=== PATIENT | male | born 1985 | race African-American/Black ===

== ENCOUNTER 2019-10-14 17:03 | Emergency (ER) | payer BC ==
[~2019-10-14] VITALS: Ht 177.8 cm; Wt 97.5 kg
[2019-10-14 17:26] LABS: URINE BILIRUBIN NEGATIVE (Negative); URINE BLOOD NEGATIVE (Negative); URINE CLARITY CLEAR; URINE COLOR YELLOW; URINE GLUCOSE-RANDOM* NEGATIVE (Negative); URINE KETONES NEGATIVE (Negative); URINE LEUKOCYTES-REFLEX NEGATIVE (Negative); URINE NITRITE-REFLEX NEGATIVE (Negative); URINE PROTEIN (DIPSTICK) NEGATIVE (Negative)
[2019-10-14 17:34] LABS: HEMATOCRIT 47.6 % (42.0-52.0); HEMOGLOBIN 15.7 gm/dL (14.0-18.0); LYMPHOCYTES 30.9 % (24.0-44.0); MCH 30.6 pg (26.0-34.0); MCHC 32.9 g/dL (28.0-37.0); MCV 93.1 fL (80.0-100.0); MONOCYTES 9.3 % (1.0-8.0); PLATELET COUNT 264 thou/uL (150-400); POLYS 56.8 % (36.0-66.0); RBC 5.12 mil/uL (4.50-6.00); RDW 13.2 % (10.5-14.5); WBC 3.5 thou/uL (4.0-11.0)
[2019-10-14 17:43] LABS: CALCIUM 9.5 mg/dL (8.5-10.1); CREATININE 1.2 mg/dL (0.7-1.3); POTASSIUM 3.7 mmol/L (3.5-5.1)
[2019-10-14 17:47] LABS: ALBUMIN 4.4 g/dL (3.4-5.0); TOTAL BILIRUBIN 0.9 mg/dL (<0.1-1.0); TOTAL PROTEIN 7.8 g/dL (6.4-8.2)
[2019-10-14] MEDS ORDERED: OMEPRAZOLE 20 M20 M1 PO (18:05)
[2019-10-14] MEDS ORDERED: CITRATE OF MAG296 M1 PO (18:49)
[2019-10-14 18:58] VITALS: BP 122/83
== END 2019-10-14 19:00 | disposition home or self-care (01) ==
LOC: ER 17:03
PROVIDERS: Physician Assistant
DX: K59.00 Constipation, unspecified (principal); K58.9 Irritable bowel syndrome, unspecified; Z79.899 Other long term (current) drug therapy